=== PATIENT | female | born 1965 | race Caucasian/White ===

== ENCOUNTER → 2017-04-10 | Outpatient (CLI) | payer MEDICARE, BC, MEDICAID ==
[~2017-04-10] MED LIST: AMOXICILLIN 8751 TAB PO; BENTYL 10MG10 MG/CAP PO; CELEXA10 MG PO; CYMBALTA 30MG30 MG PO; DESYREL 100MG100 MG PO; DESYREL 50MG50 MG PO; FLEXERIL 1010 MG/TAB PO; HCTZ 25MG TAB25 MG PO; MORPHINE 1515 MG/TAB PO; NEOMYCIN/POLY B10 ML; NEURONTIN300 MG/CAP PO; NEURONTIN600 MG/TAB PO; NORCO 325 MG-51 TAB PO; PERCOCET 325 MG1 TA2 PO; PHENERGAN 25 TA25 MG PO; STOOL SOFTENER100 M2 PO; TRIAMCINOLONE0.11 TP; VISTARIL 2525 MG/CAP PO; XANAX 0.5MG0.5 MG PO; ZOFRAN 4MG T4 MG/TAB PO; ZOFRAN ODT4 MG PO; ZYRTEC 10MG10 MG PO
== END ==
LOC: COL.RAD 07:40
DX: R68.81 Early satiety (principal)
CPT/HCPCS: A9541

== ENCOUNTER → 2017-04-16 | Outpatient (CLI) | payer MEDICARE, BC, MEDICAID | LOC: MC.RAD 14:00 | DX: Z12.31 Encounter for screening mammogram for malignant neoplasm of breast (principal) ==

== ENCOUNTER 2017-10-16 08:38 | Day surgery (SDC) | payer MEDICARE, OTHER ==
[~2017-10-16] VITALS: Ht 154.9 cm; Wt 62.3 kg
[2017-10-16 09:48] VITALS: BP 118/80; PULSE 88; TEMP 98
[2017-10-16] MEDS ORDERED: BUSPAR10 MG PO (09:53)
[2017-10-16] MEDS ORDERED: DESYREL 100MG100 MG PO (09:55)
[2017-10-16] MEDS ORDERED: CYMBALTA 60MG60 MG PO (09:56)
[2017-10-16] MEDS ORDERED: D-2000 90 MG-201 TAB PO (09:56)
[2017-10-16 11:00] VITALS: BP 117/74; PULSE 88; TEMP 97.6
[2017-10-16 11:15] VITALS: BP 115/82; PULSE 96
[2017-10-16 11:30] VITALS: BP 117/78; PULSE 96
[2017-10-16 11:45] VITALS: BP 122/82; PULSE 101
== END 2017-10-16 12:25 | disposition home or self-care (01) ==
LOC: SDCO 08:38
DX: K29.30 Chronic superficial gastritis without bleeding (principal); G89.4 Chronic pain syndrome; F41.9 Anxiety disorder, unspecified; M79.7 Fibromyalgia; Z88.6 Allergy status to analgesic agent; Z88.2 Allergy status to sulfonamides; Z88.8 Allergy status to other drugs, medicaments and biological substances; Z88.5 Allergy status to narcotic agent
CPT/HCPCS: OP; J2250; J3010; J7030

== ENCOUNTER → 2017-10-30 | Outpatient (CLI) | payer MEDICARE ==
[~2017-10-30] MED LIST changes: +BUSPAR10 MG PO; +CYMBALTA 60MG60 MG PO; +D-2000 90 MG-201 TAB PO
== END ==
LOC: COL.RAD 08:09
DX: R13.12 Dysphagia, oropharyngeal phase (principal); M46.82 Other specified inflammatory spondylopathies, cervical region

== ENCOUNTER 2018-12-20 15:11 | Outpatient (CLI) | payer MEDICARE ==
[~2018-12-20] VITALS: Ht 154.9 cm; Wt 56.8 kg
[~2018-12-20 15:11] MED LIST changes: -D-2000 90 MG-201 TAB PO; +VITAMIN D32000 IU
[2018-12-20 15:50] VITALS: BP 166/99; PULSE 98; TEMP 98
[2018-12-20 15:59] LABS: BASO % 0.5 % (0.0-2.0); EOS # 0.1 (0.0-0.7); EOS % 0.9 % (0-4.0); GRAN # 4.7 (1.4-6.5); GRAN % 64.1 % (42.2-75.2); HEMATOCRIT 45.4 % (37.0-47.0); HEMOGLOBIN 15.5 g/dl (12.5-16.0); LYMPH % 26.9 % (20.0-51.0); MEAN CELL VOLUME 97 fl (80.0-100.0); MEAN CORPUSCULAR HEMOGLOBIN 33 pg (27.0-31.0); MEAN CORPUSCULAR HGB CONC 34 g/dl (33.0-37.0); MEAN PLATELET VOLUME 10.2 fl (7.4-10.4); MONO # 0.5 (0.1-0.6); MONO % 7.3 % (1.7-9.3); PLATELET COUNT 345 K/mm3 (130-400); REDCELL DISTRIBUTION WIDTH-CV 11.7 % (11.5-14.5)
[2018-12-20 16:09] LABS: ALBUMIN 4.6 gm/dL (3.5-5.0); BILIRUBIN,TOTAL 0.8 mg/dL (0.0-1.0); CALCIUM 10.1 mg/dL (8.4-10.2); CREATININE, serum 0.62 mg/dL (0.52-1.25); MAGNESIUM 1.6 mg/dL (1.6-2.3); TOTAL PROTEIN 7.8 gm/dL (6.4-8.2)
[2018-12-20] MEDS ORDERED: NEURONTIN300 MG/CAP PO (18:33)
[2018-12-20] MEDS ORDERED: NEURONTIN100 MG/CAP PO (18:34)
[2018-12-20] MEDS ORDERED: HCTZ 25MG TAB25 MG PO (18:34)
[2018-12-20] MEDS ORDERED: MOBIC 7.5MG7.5 MG PO (18:57)
[2018-12-20] MEDS ORDERED: PERCOCET 325 MG1 TA2 PO (18:58)
[2018-12-20] MEDS ORDERED: VISTARIL 2525 MG/CAP PO (18:58)
[2018-12-20] MEDS ORDERED: ZANAFLEX2 MG PO (18:59)
[2018-12-20] MEDS ORDERED: TRIAM OI 0.1 454 TOP (19:00)
== END 2018-12-20 18:50 | disposition home or self-care (01) ==
LOC: EUO 15:11
PROVIDERS: Internal Medicine
DX: R10.9 Unspecified abdominal pain (principal); Z90.89 Acquired absence of other organs
CPT/HCPCS: J2060; J2270; J2405; J7030

== ENCOUNTER → 2018-12-27 | Outpatient (CLI) | payer MEDICARE ==
[~2018-12-27] MED LIST changes: +MOBIC 7.5MG7.5 MG PO; +NEURONTIN100 MG/CAP PO; +TRIAM OI 0.1 454 TOP; +ZANAFLEX2 MG PO
== END ==
LOC: COL.RAD 08:55
DX: I70.1 Atherosclerosis of renal artery (principal)
CPT/HCPCS: A9562

== ENCOUNTER 2019-04-15 07:12 | Day surgery (SDC) | payer MEDICARE ==
[~2019-04-15] VITALS: Ht 154.9 cm; Wt 52.5 kg
[2019-04-15 07:49] VITALS: BP 121/90; PULSE 102; TEMP 96.7
[2019-04-15 09:15] VITALS: BP 122/77; PULSE 82; TEMP 97.6
--- NOTE | 2019-04-15 09:15 | NUR ---
Pt to [facility] via cart from [facility]. Pt drowsy, but awakens easily to verbal stimuli. Pt amublates to recliner with stand by assistance. Warm blanekt provided. Pt c/o nausea. Sprite provided per pt request. Will continue to monitor. Call light within reach.
[2019-04-15 09:30] VITALS: BP 124/94; PULSE 82
--- NOTE | 2019-04-15 09:30 | NUR ---
Pt remains nauseated. Zofran 4mg IV given per PRN orders. Call light within reach.
[2019-04-15 09:45] VITALS: BP 110/68; PULSE 68
--- NOTE | 2019-04-15 09:45 | NUR ---
Pt sleeping. Respirations even and unlabored. Call light within reach.
[2019-04-15 10:00] VITALS: BP 129/73; PULSE 64
--- NOTE | 2019-04-15 10:00 | NUR ---
Pt contiues to rest. Pt states "a little better" when asked how nausea is. Pt taking sips of sprite without diffiuclties.
--- NOTE | 2019-04-15 10:15 | NUR ---
Discharge instructions reviewed. Pt voices understanding. IV site to LH and RH discharged with all parts intact. Pt up to dress. Call light within reach.
--- NOTE | 2019-04-15 10:25 | NUR ---
Pt escorted to private car via wheel chair. Pt accompanied home by her sister.
== END 2019-04-15 10:25 | disposition home or self-care (01) ==
LOC: SDCO 07:12
DX: K62.5 Hemorrhage of anus and rectum (principal); K64.0 First degree hemorrhoids; J45.909 Unspecified asthma, uncomplicated; I10 Essential (primary) hypertension; Z86.010 Personal history of colon polyps; Z88.8 Allergy status to other drugs, medicaments and biological substances; Z88.3 Allergy status to other anti-infective agents; Z88.2 Allergy status to sulfonamides; Z88.6 Allergy status to analgesic agent; Z91.041 Radiographic dye allergy status; F17.210 Nicotine dependence, cigarettes, uncomplicated; G89.29 Other chronic pain; M79.7 Fibromyalgia; F41.9 Anxiety disorder, unspecified
CPT/HCPCS: J2405; J2704; J7030

== ENCOUNTER → 2020-06-14 | Outpatient (CLI) | payer MEDICARE, MEDICAID | LOC: MC.RAD 10:23 | DX: Z12.31 Encounter for screening mammogram for malignant neoplasm of breast (principal) ==

== ENCOUNTER 2020-08-20 21:14 | Emergency (ER) | payer MEDICARE, MEDICAID, OTHER ==
[~2020-08-20] VITALS: Ht 157.5 cm; Wt 56.8 kg
[2020-08-20 21:21] VITALS: TEMP 97.6
[2020-08-20 21:54] LABS: BASO % 0.4 % (0.0-2.0); EOS # 0.4 (0.0-0.7); EOS % 4.5 % (0-4.0); GRAN % 67.6 % (42.2-75.2); HEMATOCRIT 38.7 % (37.0-47.0); HEMOGLOBIN 12.9 g/dl (12.5-16.0); LYMPH # 1.8 (1.2-3.4); LYMPH % 19.8 % (20.0-51.0); MEAN CELL VOLUME 100 fl (80.0-100.0); MEAN CORPUSCULAR HEMOGLOBIN 33 pg (27.0-31.0); MEAN CORPUSCULAR HGB CONC 33 g/dl (33.0-37.0); MEAN PLATELET VOLUME 10.7 fl (7.4-10.4); MONO # 0.7 (0.1-0.6); MONO % 7.4 % (1.7-9.3); PLATELET COUNT 391 K/mm3 (130-400); RED BLOOD COUNT 3.88 M/mm3 (4.10-5.30); REDCELL DISTRIBUTION WIDTH-CV 12.4 % (11.5-14.5)
[2020-08-20 21:56] LABS: INR 1.5 (0.8-3.0); PROTHROMBIN TIME 16.9 SECONDS (9.7-12.8)
[2020-08-20 21:59] LABS: ALANINE AMINOTRANSFERASE 26 U/L (4-34); ALBUMIN 4.5 gm/dL (3.5-5.0); ALKALINE PHOSPHATASE 75 U/L (50-136); ANION GAP 8 mmol/L (7-16); AST,SGOT 31 U/L (15-37); BILIRUBIN,TOTAL 0.5 mg/dL (0.0-1.0); BLOOD UREA NITROGEN 8 mg/dL (7-17); CALCIUM 9.3 mg/dL (8.4-10.2); CARBON DIOXIDE 30 mmol/L (22-30); CHLORIDE 100 mmol/L (98-107); CREATINE KINASE 34 U/L (30-135); CREATININE, serum 0.61 (0.52-1.25); GLUCOSE 148 mg/dL (74-106); POTASSIUM 3.8 mmol/L (3.4-5.0); SODIUM 137 mmol/L (137-145); TOTAL PROTEIN 7.2 gm/dL (6.4-8.2)
[2020-08-20 22:14] LABS: TROPONIN-I < 0.012 ng/mL (0.000-0.035)
[2020-08-20 22:50] LABS: COLLECTION METHOD CLEAN CATCH
[2020-08-20 22:57] LABS: PH 7 (5-8); SQUAMOUS EPITHELIAL None Seen /hpf; URINE APPEARANCE Clear; URINE BACTERIA None Seen /hpf; URINE BILIRUBIN Negative (NEGATIVE); URINE BLOOD Negative (NEGATIVE); URINE COLOR Straw; URINE GLUCOSE Negative (NEGATIVE); URINE KETONE Negative (NEGATIVE); URINE LEUKOCYTE ESTERASE Negative (NEGATIVE); URINE NITRATE Negative (NEGATIVE); URINE PROTEIN(semi-quant) Negative (NEGATIVE); URINE RBC 0-2 /hpf; URINE UROBILINOGEN Negative (NEGATIVE)
[2020-08-21] MEDS ORDERED: ZOFRAN 4MG T4 MG/TAB PO (01:56)
[2020-08-21 02:08] VITALS: BP 132/70; PULSE 66
== END 2020-08-21 02:08 | disposition home or self-care (01) ==
LOC: COL.ER 21:14
PROVIDERS: Emergency Medicine
DX: R07.89 Other chest pain (principal); R11.2 Nausea with vomiting, unspecified; F41.9 Anxiety disorder, unspecified; T45.515A Adverse effect of anticoagulants, initial encounter; M79.7 Fibromyalgia; F17.210 Nicotine dependence, cigarettes, uncomplicated; Z79.01 Long term (current) use of anticoagulants; Z86.711 Personal history of pulmonary embolism; Z88.2 Allergy status to sulfonamides; Z88.8 Allergy status to other drugs, medicaments and biological substances; Z88.6 Allergy status to analgesic agent
CPT/HCPCS: J2060; J2405; J2550; J7030

== ENCOUNTER → 2021-02-09 | Outpatient (CLI) | payer MEDICARE, MEDICAID | LOC: COL.VAS 12:00 | DX: I34.0 Nonrheumatic mitral (valve) insufficiency (principal); I31.3 Pericardial effusion (noninflammatory) ==

== ENCOUNTER 2021-02-14 11:34 | Emergency (ER) | payer MEDICARE, MEDICAID ==
[~2021-02-14] VITALS: Ht 154.9 cm; Wt 59.1 kg
[2021-02-14 11:52] VITALS: TEMP 98.3
[2021-02-14 15:00] VITALS: BP 164/65; PULSE 92
== END 2021-02-14 15:04 | disposition home or self-care (01) ==
LOC: COL.ER 11:34
DX: S30.0XXA Contusion of lower back and pelvis, initial encounter (principal); S90.411A Abrasion, right great toe, initial encounter; I10 Essential (primary) hypertension; F17.210 Nicotine dependence, cigarettes, uncomplicated; Z88.1 Allergy status to other antibiotic agents; Z88.2 Allergy status to sulfonamides; Z88.6 Allergy status to analgesic agent; Z91.041 Radiographic dye allergy status; Z88.5 Allergy status to narcotic agent; W01.0XXA Fall on same level from slipping, tripping and stumbling without subsequent striking against object, initial encounter; Y92.009 Unspecified place in unspecified non-institutional (private) residence as the place of occurrence of the external cause

== ENCOUNTER 2021-04-23 09:43 | Emergency (ER) | payer MEDICARE, MEDICAID ==
[~2021-04-23] VITALS: Ht 157.5 cm; Wt 61.4 kg
[2021-04-23 10:00] VITALS: TEMP 97.8
[2021-04-23 10:30] LABS: BASO % 0.3 % (0.0-2.0); EOS % 0.3 % (0-4.0); GRAN # 6.4 (1.4-6.5); GRAN % 81.9 % (42.2-75.2); HEMATOCRIT 39.1 % (37.0-47.0); HEMOGLOBIN 13.5 g/dl (12.5-16.0); LYMPH # 0.8 (1.2-3.4); LYMPH % 10.8 % (20.0-51.0); MEAN CELL VOLUME 96 fl (80.0-100.0); MEAN CORPUSCULAR HEMOGLOBIN 33 pg (27.0-31.0); MEAN CORPUSCULAR HGB CONC 35 g/dl (33.0-37.0); MONO # 0.5 (0.1-0.6); MONO % 6.4 % (1.7-9.3); PLATELET COUNT 274 K/mm3 (130-400); RED BLOOD COUNT 4.08 M/mm3 (4.10-5.30); REDCELL DISTRIBUTION WIDTH-CV 12.5 % (11.5-14.5)
[2021-04-23 10:39] LABS: ALANINE AMINOTRANSFERASE 59 U/L (4-34); ALBUMIN 4.1 gm/dL (3.5-5.0); ALKALINE PHOSPHATASE 80 U/L (50-136); ANION GAP 4 mmol/L (7-16); AST,SGOT 38 U/L (15-37); BILIRUBIN,TOTAL 0.6 mg/dL (0.0-1.0); BLOOD UREA NITROGEN 10 mg/dL (7-17); CALCIUM 9.1 mg/dL (8.4-10.2); CARBON DIOXIDE 28 mmol/L (22-30); CHLORIDE 107 mmol/L (98-107); CREATININE, serum 0.55 (0.52-1.25); GLUCOSE 140 mg/dL (74-106); LIPASE 65 U/L (23-300); SODIUM 139 mmol/L (137-145); TOTAL PROTEIN 7.1 gm/dL (6.4-8.2)
[2021-04-23 10:45] LABS: C-REACTIVE PROTEIN < 0.5 mg/dL (0.0-0.9)
[2021-04-23] MEDS ORDERED: ZOFRAN ODT4 MG PO (12:16)
[2021-04-23 12:42] VITALS: BP 118/67; PULSE 70
== END 2021-04-23 12:43 | disposition home or self-care (01) ==
LOC: COL.ER 09:43
PROVIDERS: Family Medicine
DX: U07.1 COVID-19 (principal); I10 Essential (primary) hypertension; Z87.891 Personal history of nicotine dependence; Z79.899 Other long term (current) drug therapy
CPT/HCPCS: J0780; J1200; J2060; J2405; J7120

== ENCOUNTER 2021-04-25 09:20 | Emergency (ER) | payer MEDICARE, MEDICAID ==
[~2021-04-25] VITALS: Ht 157.5 cm; Wt 59.1 kg
[2021-04-25 10:51] LABS: BASO % 0.1 % (0.0-2.0); EOS # 0.1 (0.0-0.7); EOS % 1.2 % (0-4.0); GRAN # 4.5 (1.4-6.5); GRAN % 66.5 % (42.2-75.2); HEMATOCRIT 40.6 % (37.0-47.0); HEMOGLOBIN 14.2 g/dl (12.5-16.0); LYMPH # 1.5 (1.2-3.4); LYMPH % 21.8 % (20.0-51.0); MEAN CELL VOLUME 97 fl (80.0-100.0); MEAN CORPUSCULAR HEMOGLOBIN 34 pg (27.0-31.0); MEAN CORPUSCULAR HGB CONC 35 g/dl (33.0-37.0); MEAN PLATELET VOLUME 10.9 fl (7.4-10.4); MONO # 0.7 (0.1-0.6); PLATELET COUNT 316 K/mm3 (130-400); RED BLOOD COUNT 4.18 M/mm3 (4.10-5.30); REDCELL DISTRIBUTION WIDTH-CV 12.7 % (11.5-14.5)
[2021-04-25 11:01] LABS: ALANINE AMINOTRANSFERASE 45 U/L (4-34); ALKALINE PHOSPHATASE 76 U/L (50-136); ANION GAP 6 mmol/L (7-16); AST,SGOT 33 U/L (15-37); BILIRUBIN,TOTAL 0.7 mg/dL (0.0-1.0); BLOOD UREA NITROGEN 12 mg/dL (7-17); C-REACTIVE PROTEIN < 0.5 mg/dL (0.0-0.9); CALCIUM 9.4 mg/dL (8.4-10.2); CARBON DIOXIDE 28 mmol/L (22-30); CHLORIDE 105 mmol/L (98-107); CREATININE, serum 0.69 (0.52-1.25); GLUCOSE 143 mg/dL (74-106); LIPASE 67 U/L (23-300); SODIUM 138 mmol/L (137-145)
[2021-04-25 11:12] LABS: COLLECTION METHOD CLEAN CATCH
[2021-04-25 11:18] LABS: PH 7 (5-8); SQUAMOUS EPITHELIAL 0-2 /hpf; URINE APPEARANCE Clear; URINE BACTERIA Rare /hpf; URINE BILIRUBIN Negative (NEGATIVE); URINE BLOOD Negative (NEGATIVE); URINE COLOR Straw; URINE GLUCOSE Negative (NEGATIVE); URINE KETONE Negative (NEGATIVE); URINE LEUKOCYTE ESTERASE Negative (NEGATIVE); URINE NITRATE Negative (NEGATIVE); URINE PROTEIN(semi-quant) Negative (NEGATIVE); URINE RBC 0-2 /hpf; URINE UROBILINOGEN Negative (NEGATIVE)
[2021-04-25 11:51] VITALS: TEMP 97.5
[2021-04-25] MEDS ORDERED: ZOFRAN ODT4 MG PO (14:28)
[2021-04-25 14:47] VITALS: BP 144/88; PULSE 95
== END 2021-04-25 14:47 | disposition home or self-care (01) ==
LOC: COL.ER 09:20
PROVIDERS: Nurse Practitioner
DX: U07.1 COVID-19 (principal); Z87.891 Personal history of nicotine dependence; Z88.6 Allergy status to analgesic agent; Z88.8 Allergy status to other drugs, medicaments and biological substances
CPT/HCPCS: J2060; J2270; J2405; J2765; J7030

== ENCOUNTER → 2021-05-17 | Outpatient (CLI) | payer MEDICARE, MEDICAID | LOC: COL.RAD 12:50 | DX: M51.27 Other intervertebral disc displacement, lumbosacral region (principal) ==

== ENCOUNTER → 2021-09-15 | Outpatient (CLI) | payer MEDICARE, MEDICAID | LOC: COL.VAS 12:10 | DX: I31.3 Pericardial effusion (noninflammatory) (principal) ==

== ENCOUNTER 2022-11-13 17:20 | Emergency (ER) | payer MEDICARE, MEDICAID ==
[~2022-11-13] VITALS: Ht 154.9 cm; Wt 54.5 kg
[2022-11-13 17:29] VITALS: TEMP 97.7
[2022-11-13 18:14] LABS: BASO # 0.1 K/mm3 (0.0-0.2); BASO % 0.8 % (0.0-2.0); EOS # 0.6 K/mm3 (0.0-0.7); EOS % 7.3 % (0.0-4.0); GRAN # 4.1 K/mm3 (1.4-6.5); GRAN % 53.7 % (42.2-75.2); HEMATOCRIT 41.4 % (37.0-47.0); HEMOGLOBIN 14.1 g/dl (12.5-16.0); LYMPH # 2.2 K/mm3 (1.2-3.4); LYMPH % 29.4 % (20.0-51.0); MEAN CELL VOLUME 100 fl (80.0-100.0); MEAN CORPUSCULAR HEMOGLOBIN 34 pg (27-31); MEAN CORPUSCULAR HGB CONC 34 g/dl (33.0-37.0); MEAN PLATELET VOLUME 11.4 fl (7.4-10.4); MONO # 0.7 K/mm3 (0.1-0.6); MONO % 8.7 % (1.7-9.3); PLATELET COUNT 308 K/mm3 (130-400); RED BLOOD COUNT 4.14 M/mm3 (4.10-5.30); REDCELL DISTRIBUTION WIDTH-CV 11.9 % (11.5-14.5)
[2022-11-13 18:33] LABS: CALCIUM 9.2 mg/dL (8.4-10.2); CREATININE, serum 0.67 mg/dL (0.57-1.11)
[2022-11-13] MEDS ORDERED: PREDNISONE20 MG PO (19:51)
[2022-11-13 20:12] VITALS: BP 149/82; PULSE 80
== END 2022-11-13 20:12 | disposition home or self-care (01) ==
LOC: COL.ER 17:20
PROVIDERS: Physician Assistant
DX: L50.9 Urticaria, unspecified (principal); F41.9 Anxiety disorder, unspecified; I26.99 Other pulmonary embolism without acute cor pulmonale; Z79.01 Long term (current) use of anticoagulants
CPT/HCPCS: J2060; J2930; J7030

== ENCOUNTER 2023-01-03 00:17 | Emergency (ER) | payer MEDICARE, MEDICAID ==
[~2023-01-03] VITALS: Ht 154.9 cm; Wt 56.8 kg
[~2023-01-03 00:17] MED LIST changes: +PREDNISONE20 MG PO
[2023-01-03 00:22] VITALS: TEMP 98.1
[2023-01-03 01:33] LABS: BASO % 0.4 % (0.0-2.0); EOS # 0.5 K/mm3 (0.0-0.7); EOS % 4.7 % (0.0-4.0); GRAN # 6.6 K/mm3 (1.4-6.5); GRAN % 68.9 % (42.2-75.2); HEMATOCRIT 39.3 % (37.0-47.0); LYMPH # 1.7 K/mm3 (1.2-3.4); LYMPH % 17.4 % (20.0-51.0); MEAN CELL VOLUME 97 fl (80.0-100.0); MEAN CORPUSCULAR HEMOGLOBIN 35 pg (27-31); MEAN CORPUSCULAR HGB CONC 36 g/dl (33.0-37.0); MONO # 0.8 K/mm3 (0.1-0.6); MONO % 8.3 % (1.7-9.3); PLATELET COUNT 233 K/mm3 (130-400); RED BLOOD COUNT 4.05 M/mm3 (4.10-5.30); REDCELL DISTRIBUTION WIDTH-CV 11.9 % (11.5-14.5)
[2023-01-03 01:53] LABS: ALBUMIN 3.7 gm/dL (3.5-5.0); BILIRUBIN,TOTAL 0.4 mg/dL (0.2-1.2); C-REACTIVE PROTEIN 0.35 mg/dL (0.00-0.50); CREATININE, serum 0.76 mg/dL (0.57-1.11); POTASSIUM 3.9 mmol/L (3.5-4.5); TOTAL PROTEIN 6.2 gm/dL (6.2-8.1)
[2023-01-03] MEDS ORDERED: ZOFRAN ODT4 MG PO (04:38)
[2023-01-03 04:46] VITALS: BP 109/78; PULSE 83
== END 2023-01-03 04:46 | disposition home or self-care (01) ==
LOC: COL.ER 00:17
PROVIDERS: Emergency Medicine
DX: U07.1 COVID-19 (principal); I95.9 Hypotension, unspecified; R42 Dizziness and giddiness; R11.0 Nausea; R52 Pain, unspecified; I26.99 Other pulmonary embolism without acute cor pulmonale; Z79.02 Long term (current) use of antithrombotics/antiplatelets; Z28.310 Unvaccinated for COVID-19
CPT/HCPCS: J2405; J7030

== ENCOUNTER → 2023-02-01 | Outpatient (CLI) | payer MEDICARE, MEDICAID | LOC: COL.VAS 13:09 | DX: I27.20 Pulmonary hypertension, unspecified (principal) ==